=== PATIENT | male | born 1990 | race Two or more races ===

== ENCOUNTER 2018-05-10 02:27 | Emergency (ER) | payer SELFPAY ==
[~2018-05-10] VITALS: Ht 170.2 cm; Wt 90.7 kg
--- NOTE | 2018-05-10 02:30 | NUR ---
ED Nurse Note: Patient amarilys Lyons 10 c/o AMS, EMS states that the patient was found in a car to which they reported he was experiencing tonic clonic seizures, at time of arrival patient is alert and oriented x3, responds to questions and staff however is slow, patient is accompanied by girlfriend who states they do not know what happened, no lacerations noted on head, no hemorrhage in mouth. patient does not appear in distress
[2018-05-10 02:35] VITALS: BP 142/85
--- NOTE | 2018-05-10 02:50 | Emergency Room Report ---
History of Present Illness General Chief Complaint: Altered Mental Status Source: Patient Present Illness HPI Patient is a 27-year-old male presented after increased altered mental status. Patient reportedly had been drinking Don Vikram immediately prior to onset of altered mental status. Patient was noted to have some tonic-clonic type movement. Patient was noted to have become altered subsequently. He had no prior history of seizures. Patient had been noted to be able to follow commands with patient is noted to have some gradual improvement in mental status. He had been previously healthy. Allergies: Coded Allergies: No Known Allergies (Unverified , 05/10/18) Patient History Reviewed Nursing Documentation: PMH: Agreed; PSxH: Agreed Nursing Documentation-PMH Past Medical History: No Stated History Review of Systems All Other Systems: negative except mentioned in HPI Physical Exam Vital Signs Date Time Temp Pulse Resp B/P (MAP) Pulse Ox O2 Delivery O2 Flow Rate FiO2 05/10/18 02:27 98.1 92 18 143/102 98 Room Air Medical Decision Making Last Vital Signs Date Time Temp Pulse Resp B/P (MAP) Pulse Ox O2 Delivery O2 Flow Rate FiO2 05/10/18 02:27 98.1 92 18 143/102 98 Room Air Marco Syed MD May 10, 2018 02:50
[2018-05-10 02:59] LABS: BASOPHILS % (AUTO) 0.9 % (0.0-2.0); EOSINOPHILS % (AUTO) 0.5 % (0.0-3.0); LYMPHOCYTES % (AUTO) 29.4 % (20.0-45.0); MEAN CORPUSCULAR VOLUME 91 FL (80-99); MONOCYTES % (AUTO) 6.2 % (1.0-10.0); PLATELET COUNT 269 K/UL (150-450); RED BLOOD COUNT 5.06 M/UL (4.70-6.10); RED CELL DISTRIBUTION WIDTH 10.8 % (11.6-14.8); WHITE BLOOD COUNT 7.7 K/UL (4.8-10.8)
[2018-05-10 03:14] LABS: ANION GAP 8 mmol/L (5-15); BLOOD UREA NITROGEN 12 mg/dL (7-18); CALCIUM 8.9 MG/DL (8.5-10.1); CARBON DIOXIDE 27 MMOL/L (21-32); CHLORIDE 105 MMOL/L (98-107); POTASSIUM 3.3 MMOL/L (3.5-5.1); SODIUM 140 MMOL/L (136-145)
[2018-05-10 03:18] LABS: ALANINE AMINOTRANSFERASE 21 U/L (12-78); ALBUMIN 4.4 G/DL (3.4-5.0); ALBUMIN/GLOBULIN RATIO 1.2 (1.0-2.7); ALKALINE PHOSPHATASE 68 U/L (46-116); ASPARTATE AMINO TRANSFERASE 18 U/L (15-37); BILIRUBIN,TOTAL 0.4 MG/DL (0.2-1.0)
--- NOTE | 2018-05-10 03:45 | NUR ---
ED Nurse Note: Patient is refusing CT scan, states that he wants to go home, wants to leave AMDr. Kunal Ward aware and notified
[2018-05-10 03:56] VITALS: BP 135/82
--- NOTE | 2018-05-10 03:56 | NUR ---
ER DISCHARGE NOTE: Patient is leaving AMA, Patient is informed of leaving AMA such as , Dr. Syed has informed patient risks including loss of current lifestyle or . ID band and IV line removed
== END 2018-05-10 03:56 | disposition left against medical advice (07) ==
LOC: EDBD 02:27 → EMR 03:01
DX: R41.82 Altered mental status, unspecified (principal)
CPT/HCPCS: 36415; 80053; 80307; 83605; 85025; 99284; G0480; 80329